=== PATIENT | female | born 1975 | race Caucasian/White ===

== ENCOUNTER 2018-04-19 11:56 | Emergency (ER) | payer OTHER ==
[2018-04-19 12:00] VITALS: BP 147/84; Ht 160 cm
== END 2018-04-19 12:32 | disposition home or self-care (01) ==
LOC: ED 11:56
DX: R51 Headache (principal); Z76.0 Encounter for issue of repeat prescription; F41.9 Anxiety disorder, unspecified; J45.909 Unspecified asthma, uncomplicated
CPT/HCPCS: J1885

== ENCOUNTER 2018-05-17 13:18 | Emergency (ER) | payer OTHER ==
[~2018-05-17] VITALS: Ht 162.6 cm; Wt 83.0 kg
[2018-05-17 13:28] VITALS: BP 129/76; Ht 162.6 cm; Wt 83.0 kg
== END 2018-05-17 17:20 | disposition left against medical advice (07) ==
LOC: ED 13:18
DX: Z53.21 Procedure and treatment not carried out due to patient leaving prior to being seen by health care provider (principal)

== ENCOUNTER 2018-06-11 08:06 | Emergency (ER) | payer OTHER ==
[~2018-06-11] VITALS: Ht 160 cm; Wt 83.9 kg
[2018-06-11 08:10] VITALS: Ht 160 cm; Wt 83.9 kg
[2018-06-11 08:38] VITALS: BP 111/72
== END 2018-06-11 08:38 | disposition home or self-care (01) ==
LOC: ED 08:06
DX: F41.9 Anxiety disorder, unspecified (principal); G47.00 Insomnia, unspecified; R51 Headache; F31.9 Bipolar disorder, unspecified; J45.909 Unspecified asthma, uncomplicated; Z76.0 Encounter for issue of repeat prescription

== ENCOUNTER 2018-07-04 19:19 | Emergency (ER) | payer OTHER ==
[~2018-07-04] VITALS: Ht 160 cm; Wt 83.9 kg
[2018-07-04 19:30] VITALS: Ht 160 cm; Wt 83.9 kg
[2018-07-04 22:20] VITALS: BP 140/90
== END 2018-07-04 22:21 | disposition home or self-care (01) ==
LOC: ED 19:19
DX: F32.9 Major depressive disorder, single episode, unspecified (principal); F43.10 Post-traumatic stress disorder, unspecified; J45.909 Unspecified asthma, uncomplicated; Z76.0 Encounter for issue of repeat prescription; X58.XXXA Exposure to other specified factors, initial encounter; Y93.89 Activity, other specified; Y92.89 Other specified places as the place of occurrence of the external cause; Y99.8 Other external cause status

== ENCOUNTER 2018-07-26 18:18 | Emergency (ER) | payer OTHER ==
[~2018-07-26] VITALS: Ht 160 cm; Wt 85.0 kg
[2018-07-26 18:34] VITALS: Ht 160 cm; Wt 85.0 kg
[2018-07-26 20:20] VITALS: BP 151/79
== END 2018-07-26 20:20 | disposition home or self-care (01) ==
LOC: ED 18:18
DX: H66.91 Otitis media, unspecified, right ear (principal); J45.909 Unspecified asthma, uncomplicated; F41.9 Anxiety disorder, unspecified; F31.9 Bipolar disorder, unspecified; Z76.0 Encounter for issue of repeat prescription

== ENCOUNTER 2020-06-12 20:22 | Emergency (ER) | payer OTHER ==
[~2020-06-12] VITALS: Ht 157.5 cm; Wt 83.9 kg
[2020-06-12 20:46] VITALS: Ht 157.5 cm; Wt 83.9 kg
[2020-06-12 22:34] VITALS: BP 130/82
== END 2020-06-12 22:34 | disposition home or self-care (01) ==
LOC: ED 20:22
DX: N39.0 Urinary tract infection, site not specified (principal); J45.909 Unspecified asthma, uncomplicated
CPT/HCPCS: J0696; Q0162